=== PATIENT | male | born 1960 | race Caucasian/White ===

== ENCOUNTER 2018-09-28 08:04 | Emergency (ER) | payer BC ==
[2018-09-28 08:20] VITALS: BP 144/90
[2018-09-28] MEDS ORDERED: Sodium Chloride 0.9% 1,000 ML IV STA (08:39)
[2018-09-28] MEDS ORDERED: Sodium Chloride 0.9% 10 ML Syringe FLUSH PRN (08:39)
[2018-09-28] MEDS ORDERED: Sodium Chloride 0.9% 10 ML Syringe FLUSH ONE (08:56)
[2018-09-28] MEDS ORDERED: Iohexol 647 MG/ML 100 ML Bottle IVPUSH ONE (08:56)
[2018-09-28] MEDS ORDERED: Diatrizoate Meglumine/Diatrizoate Sodium 37% 120 ML Bottle PO ONE (08:56)
--- NOTE | 2018-09-28 09:28 | EDM.PDOC ---
ED HPI GENERAL MEDICAL PROBLEM - General Chief Complaint: Abdominal Pain Stated Complaint: ABDOMINAL PAIN Time Seen by Provider: 09/28/18 08:12 Source of Information: Reports: Patient History Limitations: Reports: No Limitations - History of Present Illness INITIAL COMMENTS - FREE TEXT/NARRATIVE: The patient presents with left lower abdominal pain and rectal bleeding. The patient says this has been going on for the past week. The pain is in the left lower abdomen. A few days ago he noticed a bulge in that area. About 5 years ago he also had a bulge there but it went away. He has no bulge now. He also felt like he had a hemorrhoid and he pushed that back in a couple days ago. He also has been having the urge to have a bowel movement but he cannot go at times but when he does he has been having some blood. He has no fever, chills, cough, congestion, runny nose, chest pain or shortness of breath. He has no nausea or vomiting or dysuria. Onset: Sudden Duration: Week(s): (1) Location: Reports: Abdomen Quality: Reports: Sharp Severity: Moderate Improves with: Reports: None Worsens with: Reports: None Associated Symptoms: Reports: No Other Symptoms - Related Data Allergies Allergy/AdvReac Type Severity Reaction Status Date / Time No Known Allergies Allergy Verified 03/15/15 06:26 Home Meds: Home Meds Lisinopril 30 mg PO DAILY 09/28/18 [History] Past Medical History - Past Health History Medical/Surgical History: Denies Medical/Surgical History Cardiovascular History: Reports: Hypertension Social & Family History - Tobacco Use Smoking Status *Q: Current Every Day Smoker Years of Tobacco use: 20 Packs/Tins Daily: 1 - Caffeine Use Caffeine Use: Reports: Coffee - Recreational Drug Use Recreational Drug Use: No ED ROS GENERAL - Review of Systems Review Of Systems: See Below Constitutional: Reports: No Symptoms HEENT: Reports: No Symptoms Respiratory: Reports: No Symptoms Cardiovascular: Reports: No Symptoms Endocrine: Reports: No Symptoms GI/Abdominal: Reports: Abdominal Pain, Bloody Stool. Denies: Nausea, Vomiting : Reports: No Symptoms Musculoskeletal: Reports: No Symptoms Skin: Reports: No Symptoms ED EXAM, GI/ABD - Physical Exam Exam: See Below Exam Limited By: No Limitations General Appearance: Alert, No Apparent Distress Ears: Normal External Exam Nose: Normal Inspection Head: Atraumatic, Normocephalic Neck: Normal Inspection Respiratory/Chest: No Respiratory Distress, Lungs Clear, Normal Breath Sounds Cardiovascular: Regular Rate, Rhythm, No Edema, No Murmur GI/Abdominal Exam: Soft, No Organomegaly, No Mass, Tender (Mild tednerness to the left lower abdomen) Course - Vital Signs Last Recorded V/S: Last Vital Signs Temp 97.4 F 09/28/18 08:15 Pulse 100 09/28/18 08:15 Resp 16 09/28/18 08:15 BP 144/90 H 09/28/18 08:15 Pulse Ox 96 09/28/18 08:15 Orthostatic Blood Pressure [ 122/89 Standing] Orthostatic Blood Pressure [ 144/77 Sitting] Orthostatic Blood Pressure [ 141/92 Supine] - Orders/Labs/Meds Orders: Active Orders 24 hr Category Date Time Status Peripheral IV Care [RC] . DIRECTED Care 09/28/18 08:40 Active Sodium Chloride 0.9% [Saline Flush] Med 09/28/18 08:39 Active 10 ml FLUSH ASDIRECTED PRN cefTRIAXone [Rocephin] 2 gm Med 09/28/18 11:47 Active Sodium Chloride 0.9% [Normal Saline] 100 ml IV ONETIME Peripheral IV Insertion Adult [OM.PC] Stat Oth 09/28/18 08:39 Ordered Medication Orders Ceftriaxone Sodium 2 gm/ (Sodium Chloride) 100 mls @ 200 mls/hr IV ONETIME ONE Stop: 09/28/18 12:16 Last Admin: 09/28/18 12:11 Dose: 200 mls/hr Sodium Chloride (Saline Flush) 10 ml FLUSH ASDIRECTED PRN PRN Reason: Keep Vein Open Last Admin: 09/28/18 10:08 Dose: 10 ml Labs: Laboratory Tests 09/28/18 09/28/18 09/28/18 Range/Units 09:00 09:00 11:05 WBC 14.64 H (4.23-9.07) K/mm3 RBC 4.86 (4.63-6.08) M/mm3 Hgb 15.5 (13.7-17.5) gm/L Hct 46.0 (40.1-51.0) % MCV 94.7 H (79.0-92.2) fl MCH 31.9 (25.7-32.2) pg MCHC 33.7 (32.2-35.5) g/dl RDW Std Deviation 39.3 (35.1-43.9) fL Plt Count 332 (163-337) K/mm3 MPV 9.0 L (9.4-12.3) fl Neut % (Auto) 77.4 H (34.0-67.9) % Lymph % (Auto) 12.0 L (21.8-53.1) % [place] % (Auto) 9.0 (5.3-12.2) % Eos % (Auto) 1.3 (0.8-7.0) Baso % (Auto) 0.1 (0.1-1.2) % Neut # (Auto) 11.33 H (1.78-5.38) K/mm3 Lymph # (Auto) 1.75 (1.32-3.57) K/mm3 Jewell # (Auto) 1.32 H (0.30-0.82) K/mm3 Eos # (Auto) 0.19 (0.04-0.54) K/mm3 Baso # (Auto) 0.02 (0.01-0.08) K/mm3 Sodium 139 (136-145) mEq/L Potassium 4.6 (3.5-5.1) mEq/L Chloride 101 (98-107) mEq/L Carbon Dioxide 28 (21-32) mEq/L Anion Gap 14.6 (5-15) BUN 21 H (7-18) mg/dL Creatinine 1.2 (0.7-1.3) mg/dL Est Cr Clr Drug Dosing 73.21 mL/min Estimated GFR (MDRD) > 60 (>60) mL/min BUN/Creatinine Ratio 17.5 (14-18) Glucose 104 (74-106) mg/dL Calcium 9.3 (8.5-10.1) mg/dL Total Bilirubin 0.9 (0.2-1.0) mg/dL AST 24 (15-37) U/L ALT 46 (16-63) U/L Alkaline Phosphatase 46 (46-116) U/L Total Protein 8.1 (6.4-8.2) g/dl Albumin 3.8 (3.4-5.0) g/dl Globulin 4.3 gm/dL Albumin/Globulin Ratio 0.9 L (1-2) Lipase 123 (73-393) U/L Urine Color Yellow (Yellow) Urine Appearance Clear (Clear) Urine pH 6.5 (5.0-8.0) Ur Specific [place] 1.010 (1.005-1.030) Urine Protein Negative (Negative) Urine Glucose (UA) Negative (Negative) Urine Ketones Negative (Negative) Urine Occult Blood Negative (Negative) Urine Nitrite Negative (Negative) Urine Bilirubin Negative (Negative) Urine Urobilinogen 0.2 (0.2-1.0) Ur Leukocyte Esterase Negative (Negative) Urine RBC 0-5 (0-5) /hpf Urine WBC 0-5 (0-5) /hpf Ur Epithelial Cells 0-5 (0-5) /hpf Urine Bacteria Few (FEW) /hpf Urine Mucus Few (FEW) /hpf Meds: Medications Generic Name Dose Route Start Last Admin Trade Name Micah PRN Reason Stop Dose Admin Ceftriaxone Sodium 2 gm/ 100 mls @ 200 mls/hr 09/28/18 11:47 09/28/18 12:11 Sodium Chloride IV 09/28/18 12:16 200 mls/hr ONETIME ONE Administration Sodium Chloride 10 ml 09/28/18 08:39 09/28/18 10:08 Saline Flush FLUSH 10 ml ASDIRECTED PRN Administration Keep Vein Open Discontinued Medications Generic Name Dose Route Start Last Admin Trade Name Micah PRN Reason Stop Dose Admin Diatrizoate Meglum/Diatrizoate Sod 90 ml 09/28/18 08:56 09/28/18 10:08 Gastrografin 37% PO 09/28/18 08:57 90 ml ONETIME ONE Administration Sodium Chloride 1,000 mls @ 1,000 mls/hr 09/28/18 08:39 09/28/18 09:25 Normal Saline IV 09/28/18 09:38 1,000 mls/hr .BOLUS STA Administration Metronidazole 500 mg/ Premix 100 mls @ 100 mls/hr 09/28/18 11:46 09/28/18 12: 12 IV 09/28/18 12:45 Not Given ONETIME ONE Iohexol 100 ml 09/28/18 08:56 09/28/18 10:08 Omnipaque-300 IVPUSH 09/28/18 08:57 100 ml ONETIME ONE Administration Metronidazole 500 mg 09/28/18 12:10 Flagyl PO 09/28/18 12:11 ONETIME ONE Sodium Chloride 10 ml 09/28/18 08:56 09/28/18 09:00 Saline Flush FLUSH 09/28/18 08:57 10 ml ONETIME ONE Administration - Re-Assessments/Exams Free Text/Narrative Re-Assessment/Exam: 09/28/18 09:30 I ordered an IV NS, labs, UA and a CT of his abdomen and pelvis with IV and oral contrast. 09/28/18 11:42 His WBC was elevated at 14.64. His CMP looks good. His lipase is normal. His UA shows no UTI. His CT shows small abscess containing air next to the junction of the sigmoid and rectum. This measures about 2.7cm in size and shows adjacent bowel wall thickening and inflammatory change within the adjacent mesentery. This could represent diverticular abscess with diverticulitis or represent change from other colonic perforation. I called our general surgeon aeronautical inspector Dr Cabral and he came to see the patient. He recommends admission with antibiotics and drain the abscess by interventional radiology. We do not do that here so I will need to transfer the patient. 09/28/18 12:13 I ordered rocephin and flagyl and called [facility] and talked with Dr Samaniego with the hospitalist service and he accepted the patient. The patient did not want to go by ambulance because he had to go home and take care of something first. Departure - Departure Time of Disposition: 12:15 Disposition: DC/Tfer to Acute Hospital 02 Condition: Fair Clinical Impression: Diverticulitis, Abscess of male pelvis - Discharge Information *PRESCRIPTION DRUG MONITORING PROGRAM REVIEWED*: No *COPY OF PRESCRIPTION DRUG MONITORING REPORT IN PATIENT KRUNAL: No Referrals: PCP,None [Primary Care Provider] - Forms: ED Department Discharge Additional Instructions: Go to [facility] ER, they are expecting you. Do not eat or drink anything in case they want to do a procedure today. Call 911 if you have any problems on the way. - My Orders Last 24 Hours: My Active Orders 09/28/18 08:39 Sodium Chloride 0.9% [Saline Flush] 10 ml FLUSH ASDIRECTED PRN Peripheral IV Insertion Adult [OM.PC] Stat 09/28/18 08:40 Peripheral IV Care [RC] . DIRECTED 09/28/18 11:47 cefTRIAXone [Rocephin] 2 gm Sodium Chloride 0.9% [Normal Saline] 100 ml IV ONETIME - Assessment/Plan Last 24 Hours: My Active Orders 09/28/18 08:39 Sodium Chloride 0.9% [Saline Flush] 10 ml FLUSH ASDIRECTED PRN Peripheral IV Insertion Adult [OM.PC] Stat 09/28/18 08:40 Peripheral IV Care [RC] . DIRECTED 09/28/18 11:47 cefTRIAXone [Rocephin] 2 gm Sodium Chloride 0.9% [Normal Saline] 100 ml IV ONETIME
--- NOTE | 2018-09-28 10:42 | CT ---
CT abdomen and pelvis Technique: Multiple axial sections were obtained from slightly below the top of the liver inferiorly through the pubic symphysis. Intravenous and oral contrast was utilized. Delayed images were obtained through the bladder. Comparison: Prior CT abdomen and pelvis study of 03/15/15 performed as a ureteral stone protocol. Findings: Inflammatory change is identified near the rectosigmoid junction. There is small low density finding containing air next to the colon at this level measuring about 2.7 cm most likely representing a small abscess. Findings could represent diverticulitis or represent other etiology of bowel perforation. Adjacent bowel wall thickening is seen. No additional inflammatory change is appreciated. Small portion of the visualized lung bases show nothing acute. Visualized liver contains no focal abnormality. Calcified granulomas are noted within the spleen. Spleen does not appear enlarged. Cyst is noted within the upper pole of the right kidney measuring 2.6 cm. Cyst is noted within the mid right kidney measuring 3.6 cm. Very minimal cyst measuring less than 1 cm is noted inferiorly within the right kidney. Cyst is noted within the mid to lower left kidney measuring 1.9 cm. No hydronephrosis is seen of either kidney. Delayed images show contrast within the distal ureters and bladder. Pancreas appears within normal limits. Gallbladder contains no calcified gallstones. Aorta shows no aneurysm. No retroperitoneal adenopathy or mesenteric abnormalities are seen. No pelvic mass or adenopathy is noted. Small fat-containing bilateral inguinal hernias are noted. Bone window settings were reviewed which show spondylolisthesis at L5-S1 due to bilateral spondylolytic defects. Disc space narrowing is noted at L3-L4 and L5-S1 with vacuum phenomena. Impression: 1. Small abscess containing air next to the junction of the sigmoid and rectum. This measures about 2.7 cm in size and shows adjacent bowel wall thickening and inflammatory change within the adjacent mesentery. As mentioned above, this could represent diverticular abscess with diverticulitis or represent change from other colonic perforation. 2. Other incidental findings as noted above. Diagnostic code #5
[2018-09-28] MEDS ORDERED: metroNIDAZOLE/Normal Saline 500 MG in Premix Bag 1 BAG IV ONE (11:46)
[2018-09-28] MEDS ORDERED: cefTRIAXone 2 GM in Sodium Chloride 0.9% 100 ML IV ONE (11:47)
[2018-09-28] MEDS ORDERED: metroNIDAZOLE 500 MG Tab PO ONE (12:10)
--- NOTE | 2018-09-28 20:01 | CONS ---
CONSULTING PHYSICIAN: Ravi Cabral MD DATE OF CONSULTATION: 09/28/2018 REASON FOR CONSULTATION: Pelvic abscess, question of a perforated diverticulitis. HISTORY OF PRESENT ILLNESS: Lionel is a 58-year-old patient from [place]. He is here working from out of town, doing some construction at a local company. On of last week, he felt he had torn something in his left groin. He has a history of an inguinal hernia, which has been treated nonoperatively. The patient had some nagging pain which continued over the last several days. He has had fecal urgency where he runs to the bathroom but is unable to pass any stool. Just in the last 24 hours, he noted bleeding per rectum. He has never had tenesmus in the past. He denies a family history of colorectal cancer. He has never had a colonoscopy. He denies a history of diverticulitis. He had an inguinal hernia identified several years ago, but he has never required surgery and he says the bulge has resolved. PRIOR MEDICAL HISTORY: Hypertension. PRIOR SURGICAL HISTORY: None. ALLERGIES: To medications, none. MEDICATIONS: At home, he takes lisinopril 20 mg p.o. daily. SOCIAL HISTORY: He is a current smoker of approximately a pack a day with a 20-year pack use. He denies illicit drugs. Denies alcohol abuse. REVIEW OF SYSTEMS: He admits to some fatty tumors on the left upper extremity as well in the back, which are not increasing in size. Denies chest pain. Denies shortness of breath. He does admit to some shaking chills and diaphoresis over the weekend. The remainder of his 10 system review is negative. PHYSICAL EXAMINATION: GENERAL: He is alert. He does not appear toxic. He is cheerful, in no obvious distress. VITAL SIGNS: Temperature 97.4, pulse 100, respirations 16, blood pressure 144/90, saturating 96% on room air. HEAD AND NECK: Normocephalic, atraumatic. He is anicteric. LUNGS: Clear to auscultation bilaterally. No rhonchi, wheeze, or rales. ABDOMEN: Generally soft and nontender. However, he has some mild left lower quadrant tenderness without rebound or guarding. I can appreciate 2 small inguinal hernias which are reducible and nontender. RECTAL EXAM: Deferred. EXTREMITIES: No clubbing, cyanosis, or edema. He has a palpable soft tissue mass in the upper extremity on the medial aspect between the biceps and the triceps consistent with a lipoma. NEUROLOGIC: Cranial nerves are grossly intact and nonfocal. He is moving all 4 extremities with sensation preserved. PSYCHIATRIC: He has appropriate affect and demeanor and linear thought. LABORATORY DATA: I looked at his labs, he has a leukocytosis of 14,600, neutrophils are 77%, lymphocytes 12%. Chemistries are unremarkable. Urine is negative. I had a thorough examination of his CT scan. I cannot appreciate any diverticulosis. However, I do see what appears to be a localized perforation in the retroperitoneal portion of the upper rectum with some adjacent lymphadenopathy. This is concerning for a perforated mid rectal cancer as it is within the peritonealized portion of the rectum. There is an adjacent approximately 3 cm abscess with an air-fluid level with what appears to be a communication between the rectum and the collection. There is a slight suggestion of an adjacent soft tissue mass with surrounding inflammation. ASSESSMENT: I am strongly considering perforated rectal cancer at approximately 10 cm to 12 cm from anal verge. Again, I do not think diverticulitis is at play since this is the peritonealized portion of the rectum and this would be highly unlikely location for diverticulitis. PLAN: The ideal treatment for this would be further workup including a colonoscopy and he will need drainage of this fluid collection via Interventional Radiology. Trying to form an anastomosis in an infected space would not be advised, particularly prior to diagnosis. The colonoscopy can rule out a rectal cancer before proceeding to segmental colectomy as diagnosis of rectal cancer would completely change the operation. I have suggested he get a dose of antibiotics here and then semi-urgently be arranged for Interventional Radiology and a colonoscopy. This can be done in [place] where higher level of care is available. I have had a lengthy discussion with the patient regarding his clinical condition. I de-emphasized the possibility of a rectal cancer as we do not have a diagnosis at this point, I think doing a colostomy in this setting would be ill- advised until a definitive diagnosis can be reached. MMODAL /[id number]
== END 2018-09-28 13:00 ==
LOC: JD.ED 08:04
DX: K57.21 Diverticulitis of large intestine with perforation and abscess with bleeding (principal); K65.1 Peritoneal abscess; F17.210 Nicotine dependence, cigarettes, uncomplicated; I10 Essential (primary) hypertension; Z79.899 Other long term (current) drug therapy
CPT/HCPCS: 36415; 74177; 80053; 81001; 83690; 85025; 96361; 96365; 99285; A9270; J0696; J7030; J7040; Q9963; Q9967; 99284

== ENCOUNTER 2019-07-01 17:29 | Emergency (ER) | payer BC ==
[2019-07-01 18:12] VITALS: BP 110/65; PULSE 96
[2019-07-01] MEDS ORDERED: FLU Vacc QS2019-20(6MOS+)/PF 60 MCG/0.5 ML SYRINGE IM ONE (19:30)
--- NOTE | 2019-07-01 19:30 | EDM.PDOC ---
ED HPI GENERAL MEDICAL PROBLEM - General Chief Complaint: Abdominal Pain Stated Complaint: ABDOMINAL PAIN PT BELIEVES ITS HIS CANCER Time Seen by Provider: 07/01/19 18:23 Source of Information: Reports: Patient, Significant Other (Girlfriend) History Limitations: Reports: No Limitations - History of Present Illness INITIAL COMMENTS - FREE TEXT/NARRATIVE: Mr. Heart is a pleasant 58-year-old man with a past medical history significant for kidney stones and hypertension. He states that he resumed his lisinopril this past 06/26/2019, after being off of it for the past 7 months. He states that he has been incontinent of bloody stools, on occasion, since November 2018. He was seen in the emergency department (our records indicate that is was in fact on 09/28/2018) and told that he had diverticulitis with an abscess. He states that he was admitted to [facility] for 4 days, for treatment with IV antibiotics. His symptoms resolved, but then recurred this past March 2019, when he developed small, bloody bowel movements. He developed bilateral thigh pain, and generalized fatigue, about 2 months ago. He then developed rectal pain, with a tender palpable lump, 2 weeks ago. He has continued to have multiple small bowel movements per day. He states that he was seen at the walk-in clinic on 06/18/2019, where he underwent a CT of his abdomen and pelvis with IV contrast. He was told that he may have colon cancer. He saw a Surgeon on 06/22/2019, who scheduled him for a colonoscopy on 07/17/2019. The patient states that he has had a 15 pound weight loss over the past month due to decreased oral intake. He denies recent fever or chills, cough, dyspnea , nausea, vomiting, constipation, diarrhea, urinary symptoms, abdominal pain, joint aches, headaches, or rashes. The patient acknowledges that his symptoms have not changed since he was seen by the Surgeon on 06/22/2019, therefore it is not entirely clear what brings him to the ED today. The patient looks and smells to be intoxicated, and acknowledged that he had 3 shots of alcohol prior to coming to the ED. he is hemodynamically stable, however, his oxygen saturation is 89% on room air. The patient's PCP is at the [facility]. His Surgeon is Dr. Genevieve Gregory. He did not receive an influenza vaccine this season, but agreed to receive one here today. Rectal Pain Score (Numeric/FACES): 10 Bilateral Upper Leg Pain Score (Numeric/FACES): 9 - Related Data Allergies Allergy/AdvReac Type Severity Reaction Status Date / Time No Known Allergies Allergy Verified 03/15/15 06:26 Home Meds: Home Meds Lisinopril 20 mg PO DAILY 09/28/18 [History] Past Medical History Cardiovascular History: Reports: Hypertension Genitourinary History: Reports: Renal Calculus - Past Surgical History GI Surgical History: Reports: Other (See Below) (Exploratory laparotomy at 21 years old) Social & Family History - Tobacco Use Smoking Status *Q: Current Every Day Smoker Years of Tobacco use: 36 Packs/Tins Daily: 1 - Caffeine Use Caffeine Use: Reports: Coffee - Alcohol Use Alcohol Use History: Yes Alcohol Use Frequency: Socially (occasionally to excess) - Recreational Drug Use Recreational Drug Use: No - Living Situation & Occupation Living situation: Reports: , with Significant Other (Girlfriend) Occupation: Employed (Maintenance at [employer]) ED ROS GENERAL - Review of Systems Review Of Systems: Comprehensive ROS is negative, except as noted in HPI. ED EXAM, GENERAL - Physical Exam Exam: See Below Exam Limited By: Intoxication (slurring words) General Appearance: Alert, WD/WN, No Apparent Distress Eye Exam: Bilateral Eye: EOMI, Normal Inspection Ears: Normal External Exam, Hearing Grossly Normal Nose: Normal Inspection Throat/Mouth: Normal Inspection, Normal Lips, Normal Voice, No Airway Compromise Head: Atraumatic, Normocephalic Neck: Normal Inspection, Full Range of Motion Respiratory/Chest: No Respiratory Distress, Lungs Clear, Normal Breath Sounds, No Accessory Muscle Use Cardiovascular: Normal Peripheral Pulses, Regular Rate, Rhythm, No Edema, No Gallop, No JVD, No Murmur, No Rub Peripheral Pulses: 4+: Radial (L), Radial (R) GI/Abdominal: Normal Bowel Sounds, Soft, Non-Tender, No Organomegaly, No Distention, No Abnormal Bruit, No Mass (Male) Exam: Deferred Rectal (Males) Exam: Normal Rectal Tone, Heme + Stool (liquid brown, with incontinence), Hemorrhoids (small, nonthrombosed, right side only), Tenderness ( right side only) Back Exam: Normal Inspection, Full Range of Motion, NT Extremities: Normal Inspection, Normal Range of Motion, No Pedal Edema, Normal Capillary Refill Neurological: Alert, Oriented, Normal Cognition, No Motor/Sensory Deficits, Other (Slurred speech) Psychiatric: Normal Affect Skin Exam: Warm, Dry, Intact, Normal Color, No Rash Course - Vital Signs Last Recorded V/S: Last Vital Signs Temp 36.9 C 07/01/19 18:11 Pulse 96 07/01/19 18:11 Resp 20 07/01/19 18:11 BP 110/65 07/01/19 18:11 Pulse Ox 89 L 07/01/19 18:11 - Orders/Labs/Meds Labs: Laboratory Tests 07/01/19 07/01/19 07/01/19 Range/Units 18:30 18:30 18:30 WBC 9.87 H (4.23-9.07) K/mm3 RBC 5.23 (4.63-6.08) M/mm3 Hgb 16.5 (13.7-17.5) gm/dl Hct 48.9 (40.1-51.0) % MCV 93.5 H (79.0-92.2) fl MCH 31.5 (25.7-32.2) pg MCHC 33.7 (32.2-35.5) g/dl RDW Std Deviation 41.9 (35.1-43.9) fL Plt Count 383 H (163-337) K/mm3 MPV 8.9 L (9.4-12.3) fl Neutrophils % (Manual) 66 H (40-60) % Band Neutrophils % 0 (0-10) % Lymphocytes % (Manual) 20 (20-40) % Atypical Lymphs % 5 % Monocytes % (Manual) 5 (2-10) % Eosinophils % (Manual) 4 (0.8-7.0) % Basophils % (Manual) 0 L (0.2-1.2) Toxic Granulation 1+ slight Platelet Estimate Adequate Plt Morphology Comment Normal RBC Morph Comment Normal Sodium 142 (136-145) mEq/L Potassium 4.2 (3.5-5.1) mEq/L Chloride 104 (98-107) mEq/L Carbon Dioxide 22 (21-32) mEq/L Anion Gap 20.2 H (5-15) BUN 30 H (7-18) mg/dL Creatinine 1.6 H (0.7-1.3) mg/dL Est Cr Clr Drug Dosing 56.58 mL/min Estimated GFR (MDRD) 45 (>60) mL/min BUN/Creatinine Ratio 18.8 H (14-18) Glucose 92 (74-106) mg/dL Calcium 8.6 (8.5-10.1) mg/dL Total Bilirubin 0.2 (0.2-1.0) mg/dL AST 17 (15-37) U/L ALT 28 (16-63) U/L Alkaline Phosphatase 47 (46-116) U/L Creatine Kinase 87 (39-308) U/L Total Protein 6.8 (6.4-8.2) g/dl Albumin 3.4 (3.4-5.0) g/dl Globulin 3.4 gm/dL Albumin/Globulin Ratio 1.0 (1-2) Lipase 171 (73-393) U/L Ethyl Alcohol 0.22 (0.00) gm% Meds: Medications Discontinued Medications Generic Name Dose Route Start Last Admin Trade Name Freq PRN Reason Stop Dose Admin Diatrizoate Meglum/Diatrizoate Sod 60 ml 07/01/19 19:56 07/01/19 20:43 Gastrografin 37% PO 07/01/19 19:57 60 ml ONETIME ONE Administration Influenza Virus Vaccine 1 each 07/01/19 19:20 Pharmacy To Dose - Influenza Vaccine IM 07/01/19 19:21 ONETIME ONE Influenza Virus Vaccine 60 mcg 07/01/19 19:30 Fluzone Quad Syringe IM 07/01/19 19:31 .ONCE ONE Iopamidol 100 ml 07/01/19 20:42 07/01/19 20:43 Isovue-300 (61%) IVPUSH 07/01/19 20:43 100 ml ONETIME ONE Administration Sodium Chloride 10 ml 07/01/19 20:42 07/01/19 20:43 Saline Flush FLUSH 10 ml ONETIME PRN Administration KEEP VEIN OPEN - Re-Assessments/Exams Free Text/Narrative Re-Assessment/Exam: 07/01/19 19:21 As above, the patient is complaining of multiple tiny bloody stools per day since November (really September), bilateral thigh pain and generalized fatigue for the past 2 months, and rectal pain with a rectal lump, and fatigue for the past 2 weeks. None of these symptoms have changed since he was seen by Dr. Soto on . On examination, the patient's abdomen is completely nontender to palpation, however, on rectal examination, he is incontinent of liquid brown stool, and tender on the right side of the rectum even though the only visible abnormality is a small nonthrombosed hemorrhoid on that side. There is no palpable swelling that would be concerning for perirectal abscess, however, the patient has no tenderness on the left side of his rectum, raising the concern for a small perirectal abscess. I believe it would be prudent to perform a CT scan of the area to make sure that there is no abscess that requires draining. The other concern is the patient's low oxygen saturation. He is not complaining of dyspnea, and his lungs are grossly clear to auscultation bilaterally on auscultation, however, his oxygen saturation is 89% on room air. The patient's nurse ordered a work-up that includes a CBC, CMP, lipase level, EtOH level, urinalysis, and 2 view x-rays of the abdomen. I have added a CPK, due to his report of thigh pain and fatigue, a CT scan of his abdomen and pelvis with oral and IV contrast, and a 2 view chest x-ray. 07/01/19 21:52 The patient's CBC is remarkable for a WBC count mildly elevated at 9.87, but with 0% bandemia. His platelets are mildly elevated at 383,000, with the remainder of his CBC being unremarkable. His CMP is remarkable for an anion gap is slightly elevated at 20.2, but with a bicarbonate normal at 22. His BUN/Cr are elevated at 30/1.6, with the remainder of his CMP being unremarkable. His lipase is within normal limits at 171. His CPK is within normal limits at 87. His EtOH level is elevated at 0.22. CT of the abdomen and pelvis is read by [email or web address] as: 1. Soft tissue irregularity and eccentric thickening of the rectal wall with local adenopathy. This is suspicious for rectal cancer. 2. Abundant stool within colon. The patient's BUN/Cr was 21/1.2 on 09/28/2018. Notified that the patient eloped from the ED at 21:20, ostensibly because he did not receive pain medication. The patient did not request pain medication from me, and his abdominal exam was completely benign. The only pain that the patient had expressed was rectal pain on digital examination. Combined with his alcohol intoxication, I did not see an indication for pain medication. The patient did not wait to receive an influenza vaccine prior to eloping. Departure - Departure Time of Disposition: 21:20 Disposition: Eloped 07 Condition: Good Clinical Impression: Rectal carcinoma, Constipation, Renal insufficiency, Alcohol intoxication - Discharge Information *PRESCRIPTION DRUG MONITORING PROGRAM REVIEWED*: Not Applicable *COPY OF PRESCRIPTION DRUG MONITORING REPORT IN PATIENT KRUNAL: Not Applicable Referrals: Shell Bermudez NP [Primary Care Provider] - Genevieve Gregory MD [Physician] - Forms: ED Department Discharge Sepsis Event Note - Evaluation Sepsis Screening Result: No Definite Risk - Focused Exam Date Exam was Performed: 07/04/19 Time Exam was Performed: 15:46
[2019-07-01] MEDS ORDERED: Diatrizoate Meglumine/Diatrizoate Sodium 37% 120 ML Bottle PO ONE (19:56)
[2019-07-01] MEDS ORDERED: Iopamidol 612 MG/ML 100 ML Bottle IVPUSH ONE (20:42)
[2019-07-01] MEDS ORDERED: Sodium Chloride 0.9% 10 ML Syringe FLUSH PRN (20:42)
--- NOTE | 2019-07-02 07:39 | CT ---
CT abdomen and pelvis Technique: Multiple axial sections were obtained from above the dome of the diaphragm inferiorly through the pubic symphysis. Intravenous and oral contrast has been given. Delayed images were also obtained through the abdomen and pelvis. Comparison: Prior CT abdomen and pelvis exam of 09/28/18. Soft tissue thickening is seen within the rectum. Mild haziness is noted around the rectal wall with several small lymph nodes. Uncertain if these findings are due to previous inflammation and abscess or represent neoplasm. Mild proximal increased stool is seen throughout the colon. Visualized lung bases show nothing acute. Liver shows no focal parenchymal abnormality. Gallbladder contains no calcified gallstones. Calcified granulomas are noted within the spleen. Cysts noted within both kidneys. Largest cyst located within the right kidney measuring 4.1 cm. Pancreas appears within normal limits. Aorta shows atherosclerotic change without aneurysm. No retroperitoneal adenopathy or mesenteric abnormalities are seen. Small fat-containing bilateral inguinal hernias are noted. 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 Lesser degenerative change noted throughout other portions of the spine. Impression: 1. Abnormal rectum with wall thickening and mild surrounding haziness with several surrounding lymph nodes. As mentioned above, uncertain if findings represent residual change from previous abscess or represent neoplasm. Endoscopy is recommended to further evaluate. 2. Mild proximal increased stool within the colon. 3. Other nonacute findings as described above. Diagnostic code #9 This report was dictated in [place] Standard Time I agree with preliminary report from [facility], finalized on 07/01/19, 10:09 PM Central Time
--- NOTE | 2019-07-02 07:39 | CR ---
Abdomen: Supine and upright views of the abdomen were obtained. No prior abdominal x-ray, previous abdominal and pelvic CT exam of 09/28/18 is available. Calcification is identified within the left pelvis which is felt compatible with a phlebolith. Slight increased stool is seen within the transverse and left colon. Bowel gas pattern is otherwise unremarkable. No free air is identified. Mild degenerative change is scattered within the spine. Impression: 1. Mild increased stool within the colon. 2. Other findings believed to be nonacute and incidental. Diagnostic code #2 This report was dictated in [place] Standard Time
--- NOTE | 2019-07-02 07:39 | CR ---
Chest: Two views of the chest were obtained. Comparison: No prior chest imaging. Linear area of atelectasis or scarring is seen within the right midlung. Small nodule is noted within the left lung base compatible with granuloma. Calcified lymph nodes are seen within the left hilum. Lungs otherwise are clear. Heart size is normal. Bony structures appear within normal limits for the patient's age. Impression: 1. Previous granulomatous disease as noted above. 2. Linear scarring or atelectasis within the right midlung. 3. Nothing acute is otherwise seen. Diagnostic code #2 This report was dictated in [place] Standard Time
== END 2019-07-01 21:22 | disposition left against medical advice (07) ==
LOC: JD.ED 17:29 → SUPCPDRO 17:29 → JD.ED 21:22
DX: C20 Malignant neoplasm of rectum (principal); K59.00 Constipation, unspecified; N28.9 Disorder of kidney and ureter, unspecified; F10.129 Alcohol abuse with intoxication, unspecified; Y90.7 Blood alcohol level of 200-239 mg/100 ml; I10 Essential (primary) hypertension; F17.210 Nicotine dependence, cigarettes, uncomplicated
CPT/HCPCS: 36415; 71046; 74019; 74177; 80053; 80307; 82550; 83690; 85007; 85027; 99284; Q9963; Q9967; 99283